=== PATIENT | female | born 1950 | race American Indian/Alaskan Native ===

== ENCOUNTER 2017-01-08 14:48 | Outpatient (CLI) | payer MEDICARE ==
--- NOTE | 2017-01-08 16:42 | XRay Report ---
Cervical spine: AP and lateral views demonstrates an anterior C4-C6 fusion stabilized with an anterior plate and spacers at both levels. The plate is in good position as are the screws. A third fusion with anterior hardware is present at C6-7 with anterior space. There is good alignment of the vertebrae. Mild diffuse prevertebral swelling is identified The findings appear unchanged from prior exam of December 16, 2016.
== END 2017-01-08 14:49 | disposition home or self-care (01) ==
LOC: XRAY 14:48
PROVIDERS: ATTEND Neurological Surgery
DX: M47.12 Other spondylosis with myelopathy, cervical region (principal)
CPT/HCPCS: 72040

== ENCOUNTER 2017-03-09 15:24 | Outpatient (CLI) | payer MEDICARE ==
--- NOTE | 2017-03-09 16:34 | XRay Report ---
Cervical spine 3 views: History: Stenosis of cervical spine with myelopathy. Fall. Findings: The odontoid process and lateral mass appears intact. Anterior and posterior arch of atlas appears unremarkable. Normal height of vertebral bodies. The effusion of C4-C5 and C6 is stable. Also fusion is noted of C6-C7 and appears stable. No evidence of acute fracture. Impression: Stable fusion. No evidence of acute fracture.
== END 2017-03-09 15:25 | disposition home or self-care (01) ==
LOC: XRAY 15:24
PROVIDERS: ATTEND Neurological Surgery
DX: M48.02 Spinal stenosis, cervical region (principal); M47.12 Other spondylosis with myelopathy, cervical region; M43.22 Fusion of spine, cervical region; Z91.81 History of falling
CPT/HCPCS: 72040

== ENCOUNTER 2018-05-18 13:22 | Outpatient (CLI) | payer MEDICARE ==
[2018-05-18 13:48] LABS: Hematocrit 37.7 % (30.3-42.9); Hemoglobin 12.8 gm/dl (10.1-14.3); Mean Corpuscular HGB Conc 34 % (30-34); Mean Corpuscular Hemoglobin 28 pg (28-32); Mean Corpuscular Volume 83 fl (79-97); Platelet Count 300 K/mm3 (140-440); Red Blood Count 4.57 M/mm3 (3.65-5.03); Red Cell Distribution Width 14.6 % (13.2-15.2)
[2018-05-18 13:53] LABS: Bacteria,Urine 1+ /HPF (Negative); Bilirubin,Urine NEG (Negative); Blood,Urine NEG (Negative); Color,Urine Yellow (Yellow); Mucus,Urine FEW /HPF; Urobilinogen,Urine < 2.0 mg/dL (<2.0)
[2018-05-18 13:58] LABS: INR 0.87 (0.87-1.13)
[2018-05-18 13:59] LABS: Partial Thromboplastin Time 24.8 Sec. (24.2-36.6)
[2018-05-18 14:35] LABS: Alanine Aminotransferase 14 units/L (7-56); Albumin 4.1 g/dL (3.9-5); BUN/Creatinine Ratio 17; Blood Urea Nitrogen 15 mg/dL (7-17); Calcium 9.5 mg/dL (8.4-10.2); Hemolysis Index 11
== END 2018-05-18 13:23 | disposition home or self-care (01) ==
LOC: LAB 13:22
PROVIDERS: ATTEND Internal Medicine
DX: R53.83 Other fatigue (principal); R79.1 Abnormal coagulation profile; I10 Essential (primary) hypertension; E11.9 Type 2 diabetes mellitus without complications; E03.9 Hypothyroidism, unspecified
CPT/HCPCS: 36415; 80053; 81001; 83036; 85027; 85610; 85730; 87086

== ENCOUNTER 2021-01-09 11:51 | Outpatient (CLI) | payer MEDICARE ==
[2021-01-09 12:48] LABS: Hematocrit 38.8 % (30.3-42.9); Hemoglobin 12.9 gm/dl (10.1-14.3); Mean Corpuscular HGB Conc 33 % (30-34); Mean Corpuscular Volume 86 fl (79-97); Platelet Count 276 K/mm3 (140-440)
[2021-01-09 12:58] LABS: Albumin 3.7 g/dL (3.9-5); Calcium 9.1 mg/dL (8.4-10.2)
--- NOTE | 2021-01-09 13:50 | XRay Report ---
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 COMPARISON: 02/16/18. FINDINGS: SUPPORT DEVICES: None. HEART / MEDIASTINUM: The heart size and pulmonary vasculature are normal. LUNGS / PLEURA: No significant pulmonary or pleural abnormality. No pneumothorax. ADDITIONAL FINDINGS: There are surgical changes in the cervical spine. There are surgical clips overl bienvenido the left lower chest. The left breast may be surgically absent. IMPRESSION: No acute findings. No evidence of metastatic disease. Signer Name: Ray Nash MD Signed: 01/09/2021 1:46 PM Workstation Name: [id number]
--- NOTE | 2021-01-09 14:03 | Cat Scan Report ---
CT CHEST WITHOUT CONTRAST INDICATION / CLINICAL INFORMATION: ATELECTASIS. TECHNIQUE: Axial CT images were obtained through the chest without contrast. All CT scans at this location are p erformed using CT dose reduction for ALARA by means of automated exposure control. COMPARISON: None available. FINDINGS: Calcified granuloma left upper lung. No focal consolidation pleural effusion or pneumothorax. No jeanette tional pulmonary nodular masses seen. Soft tissues is mildly thickened. Coronary artery disease is no enedelia. Quadrigeminal nodule suggest adenoma. IMPRESSION: 1. Calcified granuloma left lower lung. No other nodular masses seen. 2. Coronary artery disease atherosclerotic changes of aorta. 3. Right adrenal lesion suggest adenoma. Signer Name: Yovani Millard MD Signed: 01/09/2021 1:59 PM Workstation Name: [id number]
== END 2021-01-09 11:52 | disposition home or self-care (01) ==
LOC: CT 11:51
PROVIDERS: ATTEND Internal Medicine
DX: J98.11 Atelectasis (principal); I50.9 Heart failure, unspecified; J30.9 Allergic rhinitis, unspecified; J45.909 Unspecified asthma, uncomplicated; E03.9 Hypothyroidism, unspecified; K21.9 Gastro-esophageal reflux disease without esophagitis; I25.10 Atherosclerotic heart disease of native coronary artery without angina pectoris; R91.8 Other nonspecific abnormal finding of lung field
CPT/HCPCS: 36415; 36600; 71046; 71250; 80053; 82805; 84436; 84443; 85027